=== PATIENT | female | born 1970 | race African-American/Black ===

== ENCOUNTER 2017-01-31 21:30 | Observation (INO) | payer BC ==
[~2017-01-31] VITALS: Ht 180.3 cm; Wt 135.0 kg
[~2017-01-31 21:30] MED LIST: Z.0.NO CURRENT MEDS
[2017-01-31 21:34] VITALS: BP 149/72; PULSE 76; RESP 16; TEMP 97.8; O2SAT 99
--- NOTE | 2017-01-31 21:46 | PD ---
Physical Exam Time Seen by Provider: 21:45 Narrative 46yo F c/o RLQ abd pain since noon today. Report nausea w/o vomiting. denies diarrhea or urinary symptoms. denies fever. LMP about one week ago. Denies vag dc. Patient stable. Patient seen in triage. Awaiting bed placement. Data Data Last Documented VS Vital Signs Date Time Temp Pulse Resp B/P Pulse Ox O2 Delivery O2 Flow Rate FiO2 01/31/17 21:34 97.8 76 16 149/72 99 Room Air [facility] Supervised Visit with KEYSHAWN: Magalys Nicole Jan 31, 2017 21:46
[2017-01-31 22:44] VITALS: BP 144/93; PULSE 64; RESP 16; TEMP 98.1; O2SAT 99
--- NOTE | 2017-01-31 23:00 | PD ---
HPI Chief Complaint: Abdominal Pain Time Seen by Provider: 23:00 Travel History International Travel<30 days: No Contact w/Intl Traveler<30days: No Traveled to known affect area: No History of Present Illness HPI 46-year-old female came to the emergency room with history of right sided abdominal pain since this morning. Patient says that the pain started all of a sudden and it has been progressively getting worse. She has been nauseous but no vomiting. No history of fever or chills. It's mostly on the right side. She's never had a pain like this before. She points the pain going all the way from the right upper quadrant to the right lower quadrant. Vital signs were stable otherwise. She says that the pain is 8 out of 10. The pain is waxing and waning in nature. No aggravating or relieving factors identified. PFSH Past Medical History Narrative Medical List of her past medical, surgical, social and family history was reviewed from the nursing note. Medical History: Denies Significant Hx Diminished Hearing: No Tetanus Vaccination: Unknown Influenza Vaccination: No ?: Not LMP: 01/25/17 Past Surgical History Surgical History: No Previous Surgery Social History Alcohol Use: No Tobacco Use: No Substance Use: No Allergies-Medications (Allergen,Severity, Reaction): Coded Allergies: Aspirin (Verified Allergy, Severe, HIVES, 01/31/17) Seafood (Verified Allergy, Severe, 01/31/17) Comments List of her allergies reviewed from the nursing note. Reported Meds & Prescriptions Reported Meds & Active Scripts Active [place] (Hydrocodone-Acetaminophen) 5-325 mg Tab 1 Tab PO Q4H PRN Ciprofloxacin (Ciprofloxacin HCl) 500 Mg Tab 500 Mg PO BID Reported No Current Meds (Miscellaneous Medication) Misc Narrative Medication List of her home medications reviewed from the nursing note. Review of Systems Except as stated in HPI: all other systems reviewed are Neg Physical Exam Narrative GENERAL: Awake, alert, obese, moderate distress SKIN: Focused skin assessment warm/dry. HEAD: Atraumatic. Normocephalic. EYES: Pupils equal and round. No scleral icterus. No injection or drainage. ENT: No nasal bleeding or discharge. Mucous membranes pink and moist. NECK: Trachea midline. No JVD. CARDIOVASCULAR: Regular rate and rhythm. No murmur appreciated. RESPIRATORY: No accessory muscle use. Clear to auscultation. Breath sounds equal bilaterally. GASTROINTESTINAL: Abdomen soft, tender in the right lower and right upper quadrant., nondistended. Hepatic and splenic margins not palpable. MUSCULOSKELETAL: No obvious deformities. No clubbing. No cyanosis. No edema. NEUROLOGICAL: Awake and alert. No obvious cranial nerve deficits. Motor grossly within normal limits. Normal speech. PSYCHIATRIC: Appropriate mood and affect; insight and judgment normal. Data Data Last Documented VS Vital Signs Date Time Temp Pulse Resp B/P Pulse Ox O2 Delivery O2 Flow Rate FiO2 01/31/17 22:44 98.1 64 16 144/93 99 Room Air Orders Complete Blood Count With Diff (01/31/17 23:09) Comprehensive Metabolic Panel (01/31/17 23:09) Lipase (01/31/17 23:09) Urinalysis - C+S If Indicated (01/31/17 23:09) Ct Abd/Pel W/O Iv Contrast (01/31/17 23:09) Iv Access Insert/Monitor (01/31/17 23:09) Ecg Monitoring (01/31/17 23:09) Oximetry (01/31/17 23:09) Morphine Inj (Morphine Inj) (01/31/17 23:15) Ondansetron Inj (Zofran Inj) (01/31/17 23:15) Sodium Chlor 0.9% 1000 Ml Inj (Ns 1000 M (01/31/17 23:09) Sodium Chloride 0.9% Flush (Ns Flush) (01/31/17 23:15) Ed Urine Pregnancytest Poc (01/31/17 23:09) Urine Culture (01/31/17 23:15) Ceftriaxone Inj (Rocephin Inj) (02/01/17 00:30) Blood Culture (02/01/17 00:34) Admit To Inpatient (02/01/17 ) Vital Signs (Adult) Q4H (02/01/17 00:37) Activity Oob Ad Tiff (02/01/17 00:37) 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 .CONTINUOUS (02/01/17 00:37) Sodium Chlor 0.9% 1000 Ml Inj (Ns 1000 M (02/01/17 00:37) Sodium Chloride 0.9% Flush (Ns Flush) (02/01/17 00:45) Sodium Chloride 0.9% Flush (Ns Flush) (02/01/17 09:00) Case Management Consult (02/01/17 00:37) Naloxone Inj (Narcan Inj) (02/01/17 00:45) Inpatient Certification (02/01/17 ) Ciprofloxacin 400 Mg Premix (Cipro 400 M (02/01/17 01:00) Consult Urology (02/01/17 ) Morphine Inj (Morphine Inj) (02/01/17 00:45) Admit Order (Ed Use Only) (02/01/17 00:53) Labs Laboratory Tests Test 01/31/17 23:15 Sodium Level 139 MEQ/L Potassium Level 5.6 MEQ/L Chloride Level 108 MEQ/L Carbon Dioxide Level 24.0 MEQ/L Anion Gap 7 MEQ/L Blood Urea Nitrogen 10 MG/DL Creatinine 0.83 MG/DL Estimat Glomerular Filtration 90 ML/MIN Rate Random Glucose 79 MG/DL Calcium Level 8.7 MG/DL Total Bilirubin 0.4 MG/DL Aspartate Amino Transf 48 U/L (AST/SGOT) Alanine Aminotransferase 20 U/L (ALT/SGPT) Alkaline Phosphatase 78 U/L Total Protein 8.0 GM/DL Albumin 3.4 GM/DL Lipase 78 U/L White Blood Count 8.5 TH/MM3 Red Blood Count 4.78 MIL/MM3 Hemoglobin 9.9 GM/DL Hematocrit 32.4 % Mean Corpuscular Volume 67.7 FL Mean Corpuscular Hemoglobin 20.7 PG Mean Corpuscular Hemoglobin 30.5 % Concent Red Cell Distribution Width 19.4 % Platelet Count 382 TH/MM3 Mean Platelet Volume 8.6 FL Neutrophils (%) (Auto) 69.2 % Lymphocytes (%) (Auto) 21.0 % Monocytes (%) (Auto) 6.5 % Eosinophils (%) (Auto) 2.4 % Basophils (%) (Auto) 0.9 % Neutrophils # (Auto) 5.9 TH/MM3 Lymphocytes # (Auto) 1.8 TH/MM3 Monocytes # (Auto) 0.6 TH/MM3 Eosinophils # (Auto) 0.2 TH/MM3 Basophils # (Auto) 0.1 TH/MM3 CBC Comment AUTO DIFF Differential Comment AUTO DIFF CONFIRMED Ovalocytes 1+ Urine Color YELLOW Urine Turbidity HAZY Urine pH 7.0 Urine Specific [place] 1.023 Urine Protein TRACE mg/dL Urine Glucose (UA) NEG mg/dL Urine Ketones NEG mg/dL Urine Occult Blood MOD Urine Nitrite NEG Urine Bilirubin NEG Urine Urobilinogen LESS THAN 2.0 MG/DL Urine Leukocyte Esterase MOD Urine RBC 140 /hpf Urine WBC 21 /hpf Urine Squamous Epithelial 2 /hpf Cells Urine Mucus FEW /lpf Microscopic Urinalysis Comment CULTURE INDICATED MDM Medical Decision Making Medical Screen Exam Complete: Yes Emergency Medical Condition: Yes Medical Record Reviewed: Yes Differential Diagnosis Acute appendicitis, acute cholecystitis, acute pancreatitis, renal colic Narrative Course 12:26 AM patient has a UTI. The CAT scan report came back as a 4 mm stone in the mid ureter with hydronephrosis. I have ordered 1 g of IV Rocephin. Given the fact that patient has obstruction and a UTI like to admit her. I put a call out for the urologist as well as the hospitalist. Procedures EKG Prior to Arrival: No Physician Communication Physician Communication Dr. Lei Diagnosis Primary Impression: Renal colic on right side Additional Impressions: UTI (urinary tract infection) Qualified Code: N39.0 - Urinary tract infection with hematuria, site unspecified Hydronephrosis Qualified Code: N13.2 - Hydronephrosis with urinary obstruction due to ureteral calculus Admitting Information Admitting Physician Requests: Admit Scripts Hydrocodone-Acetaminophen ([place])5-325 mg Tab1 Tab PO Q4H PRN (PAIN) #30 TAB Ref 0 Prov:Anna Dietz MD 02/01/17 Ciprofloxacin 500 Mg [id number] Mg PO BID #14 TAB Ref 0 Prov:Anna Dietz MD 02/01/17 Lino Hall MD Jan 31, 2017 23:00
[2017-01-31] MEDS ORDERED: SODIUM CHLOR 0.9% 1000 ML INJ 1,000 ML IV SCH (23:09)
[2017-01-31] MEDS ORDERED: ONDANSETRON HCL 4 MG/2 ML VIAL IVP ONE (23:15)
[2017-01-31] MEDS ORDERED: MORPHINE SULFATE 4 MG/ML INJ IV PUSH ONE (23:15)
[2017-01-31] MEDS ORDERED: SODIUM CHLORIDE 0.9% FLUSH 10 ML FLUSH IV FLUSH PRN (23:15)
[2017-01-31 23:33] LABS: AUTOMATED NEUTROPHIL # 5.9 TH/MM3 (1.8-7.7); BASOPHIL # 0.1 TH/MM3 (0-0.2); BASOPHIL % 0.9 % (0.0-2.0); EOSINOPHIL # 0.2 TH/MM3 (0-0.4); EOSINOPHIL % 2.4 % (0.0-4.0); HEMATOCRIT 32.4 % (35.0-46.0); LYMPHOCYTE # 1.8 TH/MM3 (1.0-4.8); MEAN CELL VOLUME 67.7 FL (80.0-100.0); MEAN CORPUSCULAR HEMOGLOBIN 20.7 PG (27.0-34.0); MEAN CORPUSCULAR HGB CONC 30.5 % (32.0-36.0); MONO % 6.5 % (0.0-8.0); NEUT % 69.2 % (16.0-70.0); PLATELET COUNT 382 TH/MM3 (150-450); RED BLOOD COUNT 4.78 MIL/MM3 (4.00-5.30); RED CELL DISTRIBUTION WIDTH 19.4 % (11.6-17.2); WHITE BLOOD COUNT 8.5 TH/MM3 (4.0-11.0)
[2017-01-31 23:37] LABS: HEMO FLAGS AUTO DIFF
[2017-01-31 23:51] LABS: ALT (GPT) 20 U/L (10-53); ANION GAP 7 MEQ/L (5-15); AST (GOT) 48 U/L (15-37); BLOOD UREA NITROGEN 10 MG/DL (7-18); CHLORIDE 108 MEQ/L (98-107); GLOMERULAR FILTRATION RATE 90 ML/MIN (>89); POTASSIUM 5.6 MEQ/L (3.5-5.1); SODIUM (NA) 139 MEQ/L (136-145)
[2017-01-31 23:52] LABS: ALKALINE PHOSPHATASE 78 U/L (45-117); TOTAL BILIRUBIN ADULT 0.4 MG/DL (0.2-1.0)
[2017-01-31 23:55] LABS: BLOOD, URINE MOD (NEG); COMMENT (UR) CULTURE INDICATED; CULTURE IF INDICATED CULTURE INDICATED; GLUCOSE,URINE NEG (NEG); KETONE, URINE NEG (NEG); MUCUS URINE FEW /lpf (OCC); NITRITE,URINE NEG (NEG); SQUAMOUS EPITHELIAL CELL URINE 2 /hpf (0-5); URINE COLOR YELLOW (YELLW/STRAW)
[2017-02-01] VITALS (7 sets, daily range): BP systolic 112–136; BP diastolic 68–98; PULSE 60–74; RESP 18–21; TEMP 97.8–98.8; O2SAT 97–100
--- NOTE | 2017-02-01 00:03 | RADRPT ---
EXAM DATE/TIME: 01/31/2017 23:35 [place] COMPARISON: No previous studies available for comparison. INDICATIONS : Right sided abdominal cramping. ORAL CONTRAST: No oral contrast ingested. RADIATION DOSE: 21.65 CTDIvol (mGy) MEDICAL HISTORY : None SURGICAL HISTORY : None. ENCOUNTER: Initial ACUITY: 1 day PAIN SCALE: 0/10 LOCATION: Right abdomen TECHNIQUE: Volumetric scanning of the abdomen and pelvis was performed. Using automated exposure control and ad justment of the mA and/or kV according to patient size, radiation dose was kept as low as reasonably achievable to obtain optimal diagnostic quality images. The lack of IV contrast limits the diagnosis for certain organ pathology. FINDINGS: LOWER LUNGS: The visualized lower lungs are clear. LIVER: Homogeneous density without lesion. There is no dilation of the biliary tree. No calcified gallston es. SPLEEN: Normal size without lesion. PANCREAS: Within normal limits. KIDNEYS: Normal in size and shape. There is moderate hydronephrosis of the right collecting system. The left collecting system is unremarkable. The right ureter is dilated down into the pelvis. There appears to be a 3-4 mm stone in the distal right ureter causing obstruction. Calcified phleboliths are also see n deep in the pelvis bilaterally.. ADRENAL GLANDS: Within normal limits. VASCULAR: There is no aortic aneurysm. BOWEL/MESENTERY: The stomach, small bowel, and colon demonstrate no acute abnormality. There is no free intraperitone al air or fluid. No inflammatory changes. Distal colon. ABDOMINAL WALL: Within normal limits. RETROPERITONEUM: There is no lymphadenopathy. BLADDER: No wall thickening or mass. REPRODUCTIVE: There is some calcifications in the uterus suggestive of a calcified fibroid in the anterior right fu ndus. INGUINAL: There is no lymphadenopathy or hernia. MUSCULOSKELETAL: Within normal limits for patient age. CONCLUSION: 1. Moderate hydronephrosis of the right collecting system with a 3-4 mm stone in the distal right ure ter causing obstruction. 2. Calcified uterine fibroid in the anterior right fundus. Brayan Christianson MD on January 31, 2017 at 23:56 Board Certified Radiologist. This report was verified electronically.
[2017-02-01 00:30] LABS: OVALOCYTES 1+ (NORMAL); SCAN/DIFF AUTO DIFF CONFIRMED
[2017-02-01] MEDS ORDERED: cefTRIAXone INJ 1,000 MG in SODIUM CHLORIDE 0.9% INJ 100 ML IV ONE (00:30)
[2017-02-01] MEDS ORDERED: NALOXONE HCL 0.4 MG/ML AMP IV PRN ×2 (00:45→03:00)
[2017-02-01] MEDS ORDERED: MORPHINE SULFATE 4 MG/ML INJ IV PUSH PRN (00:45)
[2017-02-01] MEDS ORDERED: SODIUM CHLORIDE 0.9% FLUSH 10 ML FLUSH IV FLUSH PRN ×2 (00:45→03:00)
[2017-02-01] MEDS: SODIUM CHLOR 0.9% 1000 ML INJ 1,000 ML IV SCH ×4 (01:54→17:14)
[2017-02-01] MEDS: CIPROFLOXACIN 400 MG PREMIX 200 ML IV SCH ×2 (02:32→12:35)
--- NOTE | 2017-02-01 02:45 | HHI.HP ---
[facility] No Primary Care Physician Admission Diagnosis renal colic, UTI, moderate hydronephrosis Diagnoses: Travel History International Travel<30 Days: No Contact w/Intl Traveler <30 Da: No Traveled to Known Affected Are: No History of Present Illness cramping pain RUQ which later radiated to RLQ, patient describes pain as wave like and [id number] in intensity. denies dysuria or change in ability to urinate. denies hisotry of urinary stones denies PMH denies prior surgeries Grandmother- acute leukemia Grandfather prostate [place] social: denies ETOH use, tobacco use or illicit drug use UTI renal stone with hydronephrosis IV fluids rocephin given in ER Cipro Q12H consult urology pain medication DVT SCD Past Family Social History Allergies: Coded Allergies: Aspirin (Verified Allergy, Severe, HIVES, 01/31/17) Seafood (Verified Allergy, Severe, 01/31/17) Physical Exam Vital Signs Vital Signs Date Time Temp Pulse Resp B/P Pulse Ox O2 Delivery O2 Flow Rate FiO2 01/31/17 22:44 98.1 64 16 144/93 99 Room Air 01/31/17 21:34 97.8 76 16 149/72 99 Room Air Physical Exam GENERAL: This is a well-nourished, well-developed patient, in no apparent distress. SKIN: No rashes, ecchymoses or lesions. Cool and dry. HEAD: Atraumatic. Normocephalic. No temporal or scalp tenderness. EYES: Pupils equal round and reactive. Extraocular motions intact. No scleral icterus. No injection or drainage. ENT: Nose without bleeding, purulent drainage or septal hematoma. Throat without erythema, tonsillar hypertrophy or exudate. Uvula midline. Airway patent. NECK: Trachea midline. No JVD or lymphadenopathy. Supple, nontender, no meningeal signs. CARDIOVASCULAR: Regular rate and rhythm without murmurs, gallops, or rubs. RESPIRATORY: Clear to auscultation. Breath sounds equal bilaterally. No wheezes , rales, or rhonchi. GASTROINTESTINAL: Abdomen soft, non-tender, nondistended. No hepato-splenomegaly , or palpable masses. No guarding. MUSCULOSKELETAL: Extremities without clubbing, cyanosis, or edema. No joint tenderness, effusion, or edema noted. No calf tenderness. Negative Homans sign bilaterally. NEUROLOGICAL: Awake and alert. Cranial nerves II through XII intact. Motor and sensory grossly within normal limits. Five out of 5 muscle strength in all muscle groups. Normal speech. Laboratory Laboratory Tests Test 01/31/17 23:15 Sodium Level 139 Potassium Level 5.6 Chloride Level 108 Carbon Dioxide Level 24.0 Anion Gap 7 Blood Urea Nitrogen 10 Creatinine 0.83 Estimat Glomerular Filtration 90 Rate Random Glucose 79 Calcium Level 8.7 Total Bilirubin 0.4 Aspartate Amino Transf 48 (AST/SGOT) Alanine Aminotransferase 20 (ALT/SGPT) Alkaline Phosphatase 78 Total Protein 8.0 Albumin 3.4 Lipase 78 White Blood Count 8.5 Red Blood Count 4.78 Hemoglobin 9.9 Hematocrit 32.4 Mean Corpuscular Volume 67.7 Mean Corpuscular Hemoglobin 20.7 Mean Corpuscular Hemoglobin 30.5 Concent Red Cell Distribution Width 19.4 Platelet Count 382 Mean Platelet Volume 8.6 Neutrophils (%) (Auto) 69.2 Lymphocytes (%) (Auto) 21.0 Monocytes (%) (Auto) 6.5 Eosinophils (%) (Auto) 2.4 Basophils (%) (Auto) 0.9 Neutrophils # (Auto) 5.9 Lymphocytes # (Auto) 1.8 Monocytes # (Auto) 0.6 Eosinophils # (Auto) 0.2 Basophils # (Auto) 0.1 CBC Comment AUTO DIFF Differential Comment AUTO DIFF CONFIRMED Ovalocytes 1+ Urine Color YELLOW Urine Turbidity HAZY Urine pH 7.0 Urine Specific [place] 1.023 Urine Protein TRACE Urine Glucose (UA) NEG Urine Ketones NEG Urine Occult Blood MOD Urine Nitrite NEG Urine Bilirubin NEG Urine Urobilinogen LESS THAN 2.0 Urine Leukocyte Esterase MOD Urine RBC 140 Urine WBC 21 Urine Squamous Epithelial 2 Cells Urine Mucus FEW Microscopic Urinalysis Comment CULTURE INDICATED Date/Time Procedure Status Source Growth 02/01/17 01:45 Aerobic Blood Culture Received Blood Peripheral Pending 02/01/17 01:45 Anaerobic Blood Culture Received Blood Peripheral Pending 01/31/17 23:15 Urine Culture Worksheet Urine Clean Catch Pending Result Diagram: 01/31/17 0746 01/31/17 2315 Physician Certification Order for Inpatient Services The services are ordered in accordance with Medicare regulations or non- Medicare payer requirements, as applicable. In the case of services not specified as inpatient-only, they are appropriately provided as inpatient services in accordance with the 2-midnight benchmark. days is the estimated time the patient will need to remain in the hospital, assuming treatment plan goals are met and no additional complications. Oliva Benites Feb 01, 2017 02:45
[2017-02-01] MEDS ORDERED: SENNOSIDES 8.6 MG TAB PO PRN (03:00)
[2017-02-01] MEDS ORDERED: ONDANSETRON HCL 4 MG/2 ML VIAL IVP PRN (03:00)
[2017-02-01] MEDS ORDERED: ACETAMINOPHEN 325 MG TAB PO PRN (03:00)
[2017-02-01] MEDS ORDERED: cefTRIAXone INJ 1,000 MG in SODIUM CHLORIDE 0.9% INJ 100 ML IV SCH (03:00)
[2017-02-01] MEDS ORDERED: SODIUM CHLORIDE 0.9% FLUSH 10 ML FLUSH IV FLUSH SCH ×2 (09:00)
--- NOTE | 2017-02-01 09:30 | MH ---
cc: HELIO DIETZ MD DATE OF ADMISSION: 02/01/2017 DATE OF 1970 CHIEF COMPLAINT Abdominal pain. TRAVEL IN THE LAST 30 DAYS None. HISTORY OF PRESENT ILLNESS This is a pleasant 46-year-old black female who was in her usual state of health up until yesterday around noon. The patient states that she was coming home from school on her motorcycle when she noted some right-sided abdominal pain. The pain radiated chiefly on the right side and was associated with some nausea but no vomiting. The patient came on home, ate a sandwich and lay down for a little bit hoping that she would feel better but states that the pain did not completely go away. She noted it to wax and wane but still stayed in that right upper to the right lower quadrant. The patient denies any chest pain. No shortness of breath. No recent fevers, no cough. She has taken no antibiotics or been sick lately. She denies any headache. Denies any dysuria, denies any problems voiding. PAST MEDICAL HISTORY Morbid obesity. Rare occasional alcohol use. PAST SURGICAL HISTORY No surgical history. ALLERGIES SEAFOOD. ASPIRIN MEDICATIONS Takes no regular medications. REVIEW OF SYSTEMS Positives noted are her right upper and lower quadrant pain, waxing and waning, acute onset close to 24 hours ago. Nausea but no vomiting. Other systems negative or unremarkable. SOCIAL HISTORY The patient currently lives with her mother. She is . She denies any tobacco use. No illicit drugs and a rare social alcohol drink. FAMILY HISTORY Hypertension. Cancer. No history of renal stones. PHYSICAL EXAMINATION VITAL SIGNS: Temperature is 98.8, pulse 67, respirations 18, blood pressure 134/68, O2 sat 97 on room air. GENERAL: Morbidly obese black female, looks to be her stated age, resting in the stretcher. She is alert and oriented and a good historian. HEENT: Atraumatic, normocephalic. PERRLA. Mucous membranes are pink and moist. NECK: Thick, supple. HEART SOUNDS: S1 and S2 distant heart sounds but no murmurs, rubs or gallops appreciated. RESPIRATORY: No cough. No shortness of breath. LUNGS: Essentially clear anteriorly and posteriorly. GI: Abdomen is obese, round, soft. Bowel sounds are soft sounds but active. She is tender in the right lower and upper quadrants. MUSCULOSKELETAL: Moves her extremities with purpose. No edema. No obvious deformities. NEUROLOGIC: She is awake, alert, a good historian. Speech is clear. 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 PSYCHIATRIC: Appropriate mood and affect. DIAGNOSTIC DATA WBC count 8.5, RBC 4.78, hemoglobin 9.9, hematocrit 32.4, platelet count 382, MCV 67.7, MCH 20.7, MCHC 30.5. Differential is normal with 1+ ovalocytes. Sodium 139, potassium 5.6, chloride 108, carbon dioxide 24, anion gap 7, BUN 10, creatinine 0.83, GFR 90, glucose is 79, AST is 48. All other tests are normal. Urine is yellow, hazy, pH is 7, specific gravity 1.23, trace of protein, negative glucose, ketones, nitrites and bilirubin, moderate amount of occult blood and leukocyte esterase, RBC count was 140 - high, WBC 21 - high. Mucous is few. Culture is indicated. IMAGING STUDIES Abdomen/pelvic CT: Moderate hydronephrosis with a 3-4 mm stone in the distal right ureter causing obstructions. Calcified uterine fibroid in the anterior right fundus. ASSESSMENT 1. Hydronephrosis with urinary obstruction due to ureteral calculus. 2. Urinary tract infection with hematuria. 3. Renal colic right side. 4. Anemia. 5. Hyperkalemia. PLAN 1. Our plan is to admit for observation. 2. Vital signs q. 4 and as warranted. 3. Diet will be n.p.o. for now. 4. Gentle hydration with IV fluids. 5. Bowel regimen. 6. Pain regimen. 7. Fever, nausea and vomiting regimen as needed. 8. The patient will receive IV morphine every 3 hours as needed. 9. The patient can be up, out of bed to bedside commode but call for assistance. 10. Heart healthy diet. 11. We will consult Urology for his expert opinion and start the patient on IV Cipro and IV Rocephin for her UTI. Further testing will be evaluated per URO. We strain her urine. 12. Blood cultures are pending. 13. The patient's hospital course will be dependent on the findings and her response to treatment. The patient is full code, full aggressive care and we will follow. Dictated by: HA Carnes Helio Dietz MD MNA/SSB /8:44 AM /9:29 AM PT is seen & Examined R distal ureteral phi 3 to 4 mm w hydronephrosis Renal colic Possible UTI d/w PT d/w [facility] Urology input awaited IVF/analgesic empiric abx d/c when ok w urology Helio Dietz MD Feb 01, 2017 10:22 MTDD
--- NOTE | 2017-02-01 10:22 | HHI.PR ---
Objective Objective Results - Vital Signs Date Time Temp Pulse Resp B/P Pulse Ox O2 Delivery O2 Flow Rate FiO2 02/01/17 08:30 98.8 67 18 134/68 97 02/01/17 03:00 62 02/01/17 03:00 98.1 68 18 135/98 99 02/01/17 02:57 86 18 136/78 97 01/31/17 22:44 98.1 64 16 144/93 99 Room Air 01/31/17 21:34 97.8 76 16 149/72 99 Room Air Result Diagram: 01/31/17 2315 01/31/17 2315 Other Results Laboratory Tests Test 01/31/17 23:15 Sodium Level 139 Potassium Level 5.6 Chloride Level 108 Carbon Dioxide Level 24.0 Anion Gap 7 Blood Urea Nitrogen 10 Creatinine 0.83 Estimat Glomerular Filtration 90 Rate Random Glucose 79 Calcium Level 8.7 Total Bilirubin 0.4 Aspartate Amino Transf 48 (AST/SGOT) Alanine Aminotransferase 20 (ALT/SGPT) Alkaline Phosphatase 78 Total Protein 8.0 Albumin 3.4 Lipase 78 White Blood Count 8.5 Red Blood Count 4.78 Hemoglobin 9.9 Hematocrit 32.4 Mean Corpuscular Volume 67.7 Mean Corpuscular Hemoglobin 20.7 Mean Corpuscular Hemoglobin 30.5 Concent Red Cell Distribution Width 19.4 Platelet Count 382 Mean Platelet Volume 8.6 Neutrophils (%) (Auto) 69.2 Lymphocytes (%) (Auto) 21.0 Monocytes (%) (Auto) 6.5 Eosinophils (%) (Auto) 2.4 Basophils (%) (Auto) 0.9 Neutrophils # (Auto) 5.9 Lymphocytes # (Auto) 1.8 Monocytes # (Auto) 0.6 Eosinophils # (Auto) 0.2 Basophils # (Auto) 0.1 CBC Comment AUTO DIFF Differential Comment AUTO DIFF CONFIRMED Ovalocytes 1+ Urine Color YELLOW Urine Turbidity HAZY Urine pH 7.0 Urine Specific [place] 1.023 Urine Protein TRACE Urine Glucose (UA) NEG Urine Ketones NEG Urine Occult Blood MOD Urine Nitrite NEG Urine Bilirubin NEG Urine Urobilinogen LESS THAN 2.0 Urine Leukocyte Esterase MOD Urine RBC 140 Urine WBC 21 Urine Squamous Epithelial 2 Cells Urine Mucus FEW Microscopic Urinalysis Comment CULTURE INDICATED Date/Time Procedure Status Source Growth 02/01/17 01:45 Aerobic Blood Culture Received Blood Peripheral Pending 02/01/17 01:45 Anaerobic Blood Culture Received Blood Peripheral Pending 01/31/17 23:15 Urine Culture Worksheet Urine Clean Catch Pending Physical Exam Physical Exam PT is seen & Examined R distal ureteral phi 3 to 4 mm w hydronephrosis Renal colic Possible UTI d/w PT d/w [facility] Urology input awaited IVF/analgesic empiric abx d/c when ok w urology Anna Dietz MD Feb 01, 2017 10:22
[2017-02-01] MEDS ORDERED: NORC5TAB PO (10:24)
[2017-02-01] MEDS ORDERED: CIPR500T2 PO (10:24)
[2017-02-01 13:57] LABS: HEMATOCRIT 29.1 % (35.0-46.0); MEAN CELL VOLUME 68.1 FL (80.0-100.0); MEAN CORPUSCULAR HEMOGLOBIN 21.2 PG (27.0-34.0); MEAN CORPUSCULAR HGB CONC 31.1 % (32.0-36.0); PLATELET COUNT 361 TH/MM3 (150-450); RED BLOOD COUNT 4.28 MIL/MM3 (4.00-5.30); RED CELL DISTRIBUTION WIDTH 18.9 % (11.6-17.2); WHITE BLOOD COUNT 6.7 TH/MM3 (4.0-11.0)
[2017-02-01 14:00] LABS: REVIEW FLAG FINAL
[2017-02-01 14:20] LABS: BICARBONATE 26.1 MEQ/L (21.0-32.0); POTASSIUM 3.5 MEQ/L (3.5-5.1)
--- NOTE | 2017-02-01 16:51 | PD.CONS ---
HPI Service Urology Consult Requested By Reason for Consult Nephrolithiasis Primary Care Physician Hernando Jesus III, MD Diagnosis: History of Present Illness 46yo female admitted for right flank pain found to have a right distal 3-4mm ureteral stone. Patient reports the pain began yesterday afternoon located in the right flank and radiating to the right anterior abdomen and groin. The pain persisted and worsened as a sharp pain, close to 10/10, which brought her to the ED. She denies any fevers or associated nausea or vomiting with the pain. CT scan identified a 3-4mm right distal ureteral stone with mild hydronephrosis. Patient reports the pain has been intermittent and currently she is without any pain. She has never had kidney stones in the past. Review of Systems ROS Limitations: Clinical Condition Constitutional: DENIES: Fever Endocrine: DENIES: Polyuria Eyes: DENIES: Eye pain Ears, nose, mouth, throat: DENIES: Hearing loss Respiratory: DENIES: Cough Cardiovascular: DENIES: Chest pain Gastrointestinal: COMPLAINS OF: Abdominal pain, DENIES: Nausea, Vomiting Genitourinary: DENIES: Hematuria, Dysuria Musculoskeletal: COMPLAINS OF: Back pain Integumentary: DENIES: Rash Hematologic/lymphatic: DENIES: Bruising Neurologic: DENIES: Headache Psychiatric: DENIES: Anxiety Except as stated in HPI: all other systems reviewed are Neg Past Family Social History Past Medical History No pertinent past medical history. No history of kidney stones Past Surgical History No previous surgeries Reported Medications Reported Meds & Active Scripts Active [place] (Hydrocodone-Acetaminophen) 5-325 mg Tab 1 Tab PO Q4H PRN Reported No Current Meds (Miscellaneous Medication) Misc Allergies: Coded Allergies: Aspirin (Verified Allergy, Severe, HIVES, 01/31/17) Seafood (Verified Allergy, Severe, 01/31/17) Active Ordered Medications Current Medications Medications (Trade) Dose Ordered Sig/Chao Route Start Time Stop Time Status Last Admin (NS 1000 ml Inj) 1,000 ml @ 100 mls/hr Q10H IV 02/01/17 00:37 02/01/17 01:54 Naloxone HCl 0.4 mg 0.4 mg UNSCH PRN IV 02/01/17 00:45 (Cipro 400 Mg Premix) 200 ml @ 200 mls/hr Q12H IV 02/01/17 01:00 02/01/17 12:35 Morphine Sulfate 2 mg 2 mg Q3H PRN IV PUSH 02/01/17 00:45 (NS 1000 ml Inj) 1,000 ml @ 70 mls/hr [id number] IV 02/01/17 02:56 02/01/17 09:00 (NS Flush) 2 ml UNSCH PRN IV FLUSH 02/01/17 03:00 (NS Flush) 2 ml BID IV FLUSH 02/01/17 09:00 (Tylenol) 650 mg Q4H PRN PO 02/01/17 03:00 (Zofran Inj) 4 mg Q6H PRN IVP 02/01/17 03:00 (Senokot) 17.2 mg Q12H PRN PO 02/01/17 03:00 Naloxone HCl 0.4 mg 0.4 mg UNSCH PRN IV 02/01/17 03:00 (Rocephin Inj/NS Inj) 100 ml @ 200 mls/hr Q24H IV 02/01/17 03:00 02/01/17 09:00 Family History Family history reviewed and noncontributory to present illness Social History No tobacco No ETOH Physical Exam Vital Signs Date Time Temp Pulse Resp B/P Pulse Ox O2 Delivery O2 Flow Rate FiO2 02/01/17 16:09 97.8 73 21 133/73 100 02/01/17 13:56 60 02/01/17 12:00 97.8 74 21 131/74 97 02/01/17 08:30 98.8 67 18 134/68 97 02/01/17 08:00 98.4 68 18 112/68 97 02/01/17 03:00 62 02/01/17 03:00 98.1 68 18 135/98 99 02/01/17 02:57 86 18 136/78 97 01/31/17 22:44 98.1 64 16 144/93 99 Room Air 01/31/17 21:34 97.8 76 16 149/72 99 Room Air Physical Exam GENERAL: This is a well-nourished, well-developed patient, in no apparent distress. SKIN: No rashes, ecchymoses or lesions. Cool and dry. HEAD: Atraumatic. Normocephalic. EYES: Extraocular motions intact. No scleral icterus. No injection or drainage. ENT: Nose without bleeding, purulent drainage. Airway patent. NECK: Trachea midline. No JVD or lymphadenopathy. CARDIOVASCULAR: Extremities well perfused RESPIRATORY: Nonlabored, equal chest rise GASTROINTESTINAL: Abdomen soft, obese MUSCULOSKELETAL: No edema noted. full range of motion. NEUROLOGICAL: Awake and alert. Motor and sensory grossly within normal limits. Normal speech. Lab results reviewed: Yes Laboratory Tests Test 01/31/17 02/01/17 23:15 13:10 Sodium Level 139 141 Potassium Level 5.6 3.5 Chloride Level 108 107 Carbon Dioxide Level 24.0 26.1 Anion Gap 7 8 Blood Urea Nitrogen 10 8 Creatinine 0.83 0.79 Estimat Glomerular Filtration 90 95 Rate Random Glucose 79 97 Calcium Level 8.7 8.4 Total Bilirubin 0.4 Aspartate Amino Transf 48 (AST/SGOT) Alanine Aminotransferase 20 (ALT/SGPT) Alkaline Phosphatase 78 Total Protein 8.0 Albumin 3.4 Lipase 78 White Blood Count 8.5 6.7 Red Blood Count 4.78 4.28 Hemoglobin 9.9 9.1 Hematocrit 32.4 29.1 Mean Corpuscular Volume 67.7 68.1 Mean Corpuscular Hemoglobin 20.7 21.2 Mean Corpuscular Hemoglobin 30.5 31.1 Concent Red Cell Distribution Width 19.4 18.9 Platelet Count 382 361 Mean Platelet Volume 8.6 8.5 Neutrophils (%) (Auto) 69.2 Lymphocytes (%) (Auto) 21.0 Monocytes (%) (Auto) 6.5 Eosinophils (%) (Auto) 2.4 Basophils (%) (Auto) 0.9 Neutrophils # (Auto) 5.9 Lymphocytes # (Auto) 1.8 Monocytes # (Auto) 0.6 Eosinophils # (Auto) 0.2 Basophils # (Auto) 0.1 CBC Comment AUTO DIFF Differential Comment AUTO DIFF CONFIRMED Ovalocytes 1+ Urine Color YELLOW Urine Turbidity HAZY Urine pH 7.0 Urine Specific [place] 1.023 Urine Protein TRACE Urine Glucose (UA) NEG Urine Ketones NEG Urine Occult Blood MOD Urine Nitrite NEG Urine Bilirubin NEG Urine Urobilinogen LESS THAN 2.0 Urine Leukocyte Esterase MOD Urine RBC 140 Urine WBC 21 Urine Squamous Epithelial 2 Cells Urine Mucus FEW Microscopic Urinalysis Comment CULTURE INDICATED Date/Time Procedure Status Source Growth 02/01/17 01:45 Aerobic Blood Culture Received Blood Peripheral Pending 02/01/17 01:45 Anaerobic Blood Culture Received Blood Peripheral Pending 01/31/17 23:15 Urine Culture - Preliminary Resulted Urine Clean Catch NO GROWTH IN 24 HOURS. Result Diagram: 02/01/17 1310 02/01/17 1310 Personally reviewed images: Yes Imaging Last Impressions Abdomen/Pelvis CT 01/31/17 [id number] Signed Impressions: Service Date/Time: Tuesday, January 31, 2017 23:35 - CONCLUSION: 1. Moderate hydronephrosis of the right collecting system with a 3-4 mm stone in the distal right ureter causing obstruction. 2. Calcified uterine fibroid in the anterior right fundus. Brayan Christianson MD Assessment and Plan Problem List: (1) UTI (urinary tract infection) ICD Code: N39.0 Status: Acute (2) Renal colic on right side ICD Code: N23 Status: Acute Assessment and Plan 46yo female with 3-4mm right distal ureteral stone -CT scan reviewed with stone noted. Due to size and location, patient has a good chance of passing the stone without surgical intervention -Recommend Medical expulsive therapy with Flomax and pain control. No surgical intervention indicated at this time. High chance of spontaneous stone passage -Patient may follow-up with [facility] for further management of her stone burden in 2 weeks after discharge -Patient understands to return to the ED if she develops fevers, significant uncontrollable pain, or persistent N/V. -Please call with questions Problem Qualifiers (1) UTI (urinary tract infection): Qualified Code: N39.0 - Urinary tract infection with hematuria, site unspecified Hua Lei MD Feb 01, 2017 16:51
== END 2017-02-01 18:00 | disposition home or self-care (01) ==
LOC: NEPE 21:30 → NEDA 02-01 00:54 → INTOOBSV 02-01 00:54 → NEPFCDU 02-01 03:10
PROVIDERS: ADMIT Specialist; ATTEND Specialist
DX: N13.2 Hydronephrosis with renal and ureteral calculous obstruction (principal); N39.0 Urinary tract infection, site not specified; E87.5 Hyperkalemia; D64.9 Anemia, unspecified; Z80.6 Family history of leukemia; Z80.42 Family history of malignant neoplasm of prostate
CPT/HCPCS: 74176; 80048; 80053; 81001; 83690; 84703; 85025; 85027; 87040; 87086; 96374; 96375; 99285; G0378; J0696; J0744; J2270; J2405; J7030

== ENCOUNTER 2018-02-25 07:37 | Emergency (ER) | END 2018-02-25 11:29 | disposition home or self-care (01) | DX: N39.0 Urinary tract infection, site not specified (principal); R11.0 Nausea; Z87.442 Personal history of urinary calculi | CPT/HCPCS: 74176; 80053; 81001; 83690; 84703; 85025; 87086; 96361; 96365; 96375; 99284; J0696; J1885; J7030 ==